=== PATIENT | male | born 1985 | race Caucasian/White ===

== ENCOUNTER 2016-12-16 21:54 | Emergency (ER) | payer MEDICAID ==
[~2016-12-16] VITALS: Ht 188 cm; Wt 89.0 kg
[2016-12-16 21:59] VITALS: Ht 188 cm; Wt 89.0 kg
[2016-12-16] MEDS ORDERED: KETOROLAC 30 MG INJ IV STA (22:06)
[2016-12-16] MEDS ORDERED: ASPIRIN 81 MG TAB PO ONE (22:30)
[2016-12-16] MEDS ORDERED: LIDOCAINE/MYLANTA 40 ML BTL PO ONE (22:30)
--- NOTE | 2016-12-16 23:18 | ERD ---
ER Documentation Chief Complaint Date/Time DATE: 12/16/16 TIME: 23:14 Chief Complaint CP x 30 min, comes from detox center. H/O "mild heart attck" previously HPI This 31-year-old male was being released from his detox facility 30 minutes ago when he complained of sharp chest pain. States that the chest pain is in the center of his chest and was present since earlier in the day. Asked him about this suppose a history of a heart attack he said that a month ago he went to another hospital for chest pain is not sure that he actually had any heart attack. Says he has no history of hypertension, coronary artery disease, heart attacks in his family at a young age, but he has smoked cigarettes for more than 10 years. Denies shortness of breath, denies nausea and vomiting. ROS All systems reviewed and are negative except as per history of present illness. 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 Head: Atraumatic Eyes: Normal Conjunctiva ENT: Normal External Ears, Nose and Mouth. Neck: Full range of motion..~ No meningismus. Resp: Clear to auscultation bilaterally Cardio: Regular rate and rhythm, no murmurs Abd: Soft, non tender, non distended. Normal bowel sounds Skin: No petechiae or rashes Ext: No cyanosis, or edema Neur: Awake and alert And oriented 3, no focal deficits Psych: Normal Mood and Affect Results 24 hrs Laboratory Tests Test 12/16/16 22:06 Troponin I < 0.012ng/ml Current Medications Medications (Trade) Dose Ordered Sig/Abhi Route PRN Reason Start Time Stop Time Status Last Admin Dose Admin Aspirin (Aspirin) 324 mg ONCE ONCE PO 12/16/16 22:30 12/16/16 22:31 DC 12/16/16 22:30 Ketorolac Tromethamine (Toradol) 30 mg ONCE STAT IV 12/16/16 22:06 12/16/16 22:07 DC 12/16/16 22:29 Miscellaneous Medication (Gi Cocktail (2)) 40 ml ONCE ONCE PO 12/16/16 22:30 12/16/16 22:31 DC 12/16/16 22:30 Procedures/MDM Low risk male with chest pain going on for 5 hours. Negative troponin. Completely normal EKG. Normal chest x-ray. He was given 325 mg aspirin as well as a GI cocktail and Toradol. Did have reproducible chest pain. Chest pain was completely resolved in the emergency room. Patient is feeling better going to discharge of instructions to obtain appointment for an echocardiogram through his primary care doctor. Return precautions also given. EKG interpretation: Normal sinus rhythm rate of 86, normal axis, no ST or T- wave changes concerning for acute ischemia, normal intervals. Normal EKG supervisor mails interpretation: Normal sinus rhythm without arrhythmia Chest x-ray interpretation: I see no acute process. I see no widened mediastinum, no pneumothorax, no fractures. Departure Diagnosis: Primary Impression: Chest pain Condition: Stable BARBER STANLEYJON VIZCAINO Dec 16, 2016 23:18
[2016-12-16 23:51] VITALS: BP 128/73; PULSE 77; RESP 20; TEMP 98.3
[2016-12-17] MEDS ORDERED: NAPR-688 PO (00:55)
[2016-12-17] MEDS ORDERED: RANI150T9 PO (00:55)
--- NOTE | 2016-12-17 01:16 | RADRPT ---
PROCEDURE: XR Chest. CLINICAL INDICATION: Chest pain. TECHNIQUE: Single frontal view of the chest. COMPARISON: None. FINDINGS: Heart size is likely upper limits of normal. The lungs are clear. No signs of pleural fluid or pneum othorax are seen. The osseous structures and soft tissues are unremarkable. IMPRESSION: No evidence for active cardiopulmonary disease. RPTAT: [facility] Physician Chika Date Time Electronically viewed and signed by Physician Chika on 12/17/2016 01:16 RS/
[2016-12-18] MEDS ORDERED: LEVE100018 PO (21:45)
== END 2016-12-17 01:22 | disposition home or self-care (01) ==
LOC: FTE 21:54
DX: R07.9 Chest pain, unspecified (principal); I50.9 Heart failure, unspecified; F17.210 Nicotine dependence, cigarettes, uncomplicated
CPT/HCPCS: 71010; 84484; 93005; 96374; J1885; Z7502; Z7610

== ENCOUNTER 2016-12-18 20:21 | Emergency (ER) | payer MEDICAID ==
[~2016-12-18] VITALS: Ht 188 cm; Wt 90.0 kg
[~2016-12-18 20:21] MED LIST: NAPR-688 PO; RANI150T9 PO
[2016-12-18 20:36] VITALS: Ht 188 cm; Wt 90.0 kg
[2016-12-18] MEDS ORDERED: LORAZEPAM 2 MG INJ ONE (21:40)
[2016-12-18] MEDS ORDERED: LEVE100018 PO (21:45)
[2016-12-18] MEDS ORDERED: LORAZEPAM 2 MG INJ IV ONE (22:00)
[2016-12-18] MEDS ORDERED: SOD CHLORIDE 0.9% 500 ML IV STA (22:06)
[2016-12-18 22:35] LABS: BASOPHILS % 0.6 % (0.0-2.0); EOSINOPHILS # 0.4 10^3/ul (0.0-0.5); EOSINOPHILS % 5.5 % (0.0-7.0); HEMATOCRIT 39.8 % (42.0-52.0); HEMOGLOBIN 13.1 g/dl (14.0-18.0); LYMPHOCYTES # 2.3 10^3/ul (0.8-2.9); MEAN CORPUSCULAR HEMOGLOBIN 29.8 pg (29.0-33.0); MEAN CORPUSCULAR HGB CONC 32.9 g/dl (32.0-37.0); MEAN CORPUSCULAR VOLUME 90.7 fl (82.0-101.0); MEAN PLATELET VOLUME 12.3 fl (7.4-10.4); MONOCYTE # 0.8 10^3/ul (0.3-0.9); MONOCYTES % 11.1 % (0.0-11.0); NEUTROPHIL # 3.6 10^3/ul (1.6-7.5); NEUTROPHILS % 50.4 % (39.0-77.0); PLATELET COUNT 203 10^3/UL (140-415); RED BLOOD COUNT 4.39 10^6/ul (4.70-6.10); RED CELL DISTRIBUTION WIDTH 13.2 % (11.5-14.5); WHITE BLOOD COUNT 7.1 10^3/ul (4.8-10.8)
[2016-12-18 22:55] LABS: CALCIUM 8.9 mg/dl (8.4-10.2); CREATININE 0.65 mg/dl (0.61-1.24); POTASSIUM 4.3 mmol/L (3.5-5.1)
--- NOTE | 2016-12-18 23:44 | RADRPT ---
PROCEDURE: CT Head without. CLINICAL INDICATION: Seizure. TECHNIQUE: The study was performed utilizing a multi-slice, multidetector CT scanner. Direct spira l 1 mm axial sections were obtained through the head without the use of intravenous contrast materia l. 1 or more of the following dose reduction techniques were utilized: Automated exposure control, adjustment of the mA and/or kV according to patient's size, iterative reconstruction technique. Co stewart and sagittal reformations were obtained. The images were reviewed on a PACS workstation. RADIATION DOSE: CTDIvol: 43.4 mGyDLP: 914.0 mGy-cm COMPARISON: No prior studies are available for comparison. FINDINGS: There is no intracranial hemorrhage, extra-axial fluid collection, mass lesion, midline shift or hyd rocephalus. The ventricles, sulci and cisterns are within normal limits. The white matter is unrem arkable. The santana-white matter differentiation is preserved. The basal cisterns are patent. The m idline structures are intact. The orbits, calvarium and extracranial soft tissues are normal in tai earance. The visualized paranasal sinuses, mastoid air cells and middle ear cavities are normally ae rated. IMPRESSION: 1. No acute intracranial abnormality. No intracranial hemorrhage, extra-axial fluid collection, ma ss lesion or hydrocephalous. ARPTAT: HGAS .Bib Solis MD, MD Date Time Electronically viewed and signed by .Bib Solis MD, MD on 12/18/2016 23:44 .S/
--- NOTE | 2016-12-18 23:44 | RADRPT ---
PROCEDURE: XR Chest. CLINICAL INDICATION: Seizure. TECHNIQUE: AP view of the chest was obtained. COMPARISON: None available FINDINGS: The cardiomediastinal silhouette is within normal limits. The lungs are clear. No signs of pleural f luid or pneumothorax are seen. The osseous structures and soft tissues are unremarkable. IMPRESSION: 1. No evidence for active cardiopulmonary disease. RPTAT: HGAS .Bib Solis MD, MD Date Time Electronically viewed and signed by .Bib Solis MD, on 12/18/2016 23:44 .S/
--- NOTE | 2016-12-19 00:43 | ERD ---
ER Documentation Chief Complaint Date/Time DATE: 12/19/16 TIME: 00:42 Chief Complaint seizure this evening HPI This is a 31-year-old male says he had a seizure earlier this has had breakthrough seizures before. History of seizure disorder. On Keppra. Compliant with medications. ROS All systems reviewed and are negative except as per history of present illness. 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 Neck: Full range of motion..~ No meningismus. Resp: Clear to auscultation bilaterally Cardio: Regular rate and rhythm, no murmurs Abd: Soft, non tender, non distended. Normal bowel sounds Skin: No petechiae or rashes Back: No midline or flank tenderness Ext: No cyanosis, or edema Neur: Awake and alert Psych: Normal Mood and Affect Result Diagram: 12/18/16213012/18/162130 Results 24 hrs Laboratory Tests Test 12/18/16 21:31 12/18/16 22:30 White Blood Count 7.110^3/ul Red Blood Count 4.3910^6/ul Hemoglobin 13.1g/dl Hematocrit 39.8% Mean Corpuscular Volume 90.7fl Mean Corpuscular Hemoglobin 29.8pg Mean Corpuscular Hemoglobin Concent 32.9g/dl Red Cell Distribution Width 13.2% Platelet Count 27098^3/UL Mean Platelet Volume 12.3fl Neutrophils % 50.4% Lymphocytes % 32.0% Monocytes % 11.1% Eosinophils % 5.5% Basophils % 0.6% Nucleated Red Blood Cells % 0.0/100WBC Neutrophils # 3.610^3/ul Lymphocytes # 2.310^3/ul Monocytes # 0.810^3/ul Eosinophils # 0.410^3/ul Basophils # 0.010^3/ul Nucleated Red Blood Cells # 0.010^3/ul Sodium Level 137mmol/L Potassium Level 4.3mmol/L Chloride Level 109mmol/L Carbon Dioxide Level 24mmol/L Anion Gap 8 Blood Urea Nitrogen 19mg/dl Creatinine 0.65mg/dl Glucose Level 92mg/dl Calcium Level 8.9mg/dl Bedside Glucose 103mg/dL Current Medications Medications (Trade) Dose Ordered Sig/Abhi Route PRN Reason Start Time Stop Time Status Last Admin Dose Admin Lorazepam (Ativan) 2 mg STK-MED ONCE .ROUTE 12/18/16 21:40 12/18/16 21:41 DC Lorazepam 1 mg 1 mg ONCE ONCE IV 12/18/16 22:00 12/18/16 22:01 DC 12/18/16 22:01 Sodium Chloride (NS) 500 ml @ 500 mls/hr Q1H STAT IV 12/18/16 22:06 12/18/16 23:05 DC 12/18/16 22:30 Procedures/MDM EKG: Rate/Rhythm: [Normal Sinus Rhythm] QRS, ST, T-waves: [No changes consistent w/ acute ischemia] Impression: [No evidence of ischemia or arrhythmia] CT of the head is read as negative by the radiologist. Please see his dictation for report. Medical decision-makin-year-old male with recurrent seizure disorder. No further seizure activity here. Well-appearing. Discharged home. Advised to follow-up with neurologist tomorrow. Return for any seizure-like activity. Departure Diagnosis: Primary Impression: Seizure disorder Condition: Stable Patient Instructions: Seizure, Recurrent [Adult] LUISA KING Dec 19, 2016 00:43
[2016-12-19 00:56] VITALS: BP 119/78; PULSE 73; RESP 14; TEMP 98.6
== END 2016-12-19 00:58 | disposition home or self-care (01) ==
LOC: E/R 20:21
DX: G40.909 Epilepsy, unspecified, not intractable, without status epilepticus (principal); R40.2252 Coma scale, best verbal response, oriented, at arrival to emergency department; F17.210 Nicotine dependence, cigarettes, uncomplicated; I50.9 Heart failure, unspecified; R40.2142 Coma scale, eyes open, spontaneous, at arrival to emergency department; R40.2362 Coma scale, best motor response, obeys commands, at arrival to emergency department
CPT/HCPCS: 36415; 70450; 71010; 80048; 82962; 85025; 96374; J2060; J7040; Z7502

== ENCOUNTER 2016-12-24 01:50 | Emergency (ER) | payer MEDICAID ==
[~2016-12-24] VITALS: Ht 189.2 cm; Wt 90.9 kg
[~2016-12-24 01:50] MED LIST changes: +LEVE100018 PO
[2016-12-24 01:53] VITALS: Ht 189.2 cm; Wt 90.9 kg
[2016-12-24] MEDS ORDERED: ACETAMINOPHEN 500 MG TAB PO STA (02:19)
--- NOTE | 2016-12-24 02:25 | ERD ---
ER Documentation Chief Complaint Date/Time DATE: 12/24/16 TIME: 02:21 Chief Complaint PAMELA RA41 from home,c/o chest sharp pain,hx CHF,seizure HPI Patient is a 31-year-old male who presents with sudden onset, constant, sharp left precordial chest pain that began 20 minutes prior to arrival. He states that it hurts when he pushes on his chest or when he takes a deep breath. He denies cough, fever, back pain. He was seen in the ER within the last week for the same complaint, but states that this is a different chest pain. He states that he has history of CHF since he was a baby and had a heart surgery as a baby , but does not know further details. He is in a sober living for prior heroin abuse. ROS All systems reviewed and are negative except as per history of present illness. Medications Home Meds Active Scripts Acetaminophen* (Tylophen*) 500 Mg Capsule, 1000 MG PO Q6H Y for CHEST PAIN, #20 TAB Prov:GENEVIEVE CHAVEZ MD 12/24/16 Ranitidine Hcl* (Zantac*) 150 Mg Tablet, 150 MG PO BID, #30 TAB Prov:MARLENE STANLEY DO 12/17/16 Naproxen* (Naproxen*) 500 Mg Tablet, 500 MG PO BID, #14 TAB Prov:MARLENE STANLEY DO 12/17/16 Reported Medications Levetiracetam* (Keppra*) 1,000 Mg Tablet, 1000 MG PO BID, TAB 12/18/16 Allergies Allergies: Coded Allergies: ibuprofen (Unverified Allergy, Unknown, 12/18/16) PMhx/Soc Past medical history: Congenital heart defect, CHF Past surgical history: Unknown cardiac surgery Social history: Prior heroin and benzodiazepine abuse, smokes cigarettes, denies alcohol Hx Cardiac Disorders: Yes ([place] CHF) Hx Miscellaneous Medical Probl: Yes (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 Neck: Full range of motion..~ No meningismus.No JVD Resp: Clear to auscultation bilaterally, No wheezes, no rales Cardio: Regular rate and rhythm, no murmur. Left parasternal chest tenderness, palpation of left precordium completely reproduces pain Abd: Soft, non tender, non distended. Normal bowel sounds Skin: No petechiae or rashes Back: No midline or flank tenderness Ext: No cyanosis, or edema. 2+ radial pulses without delay Neur: Awake and alert, Cranial nerves II through XII intact bilaterally, strength and sensation full for extremity Psych: Normal Mood and Affect Result Diagram: 12/24/1620912/24/16209 Results 24 hrs Laboratory Tests Test 12/24/16 02:10 12/24/16 03:00 12/24/16 05:12 White Blood Count 8.010^3/ul Red Blood Count 4.3310^6/ul Hemoglobin 12.9g/dl Hematocrit 39.1% Mean Corpuscular Volume 90.3fl Mean Corpuscular Hemoglobin 29.8pg Mean Corpuscular Hemoglobin Concent 33.0g/dl Red Cell Distribution Width 13.3% Platelet Count 07190^3/UL Mean Platelet Volume 11.7fl Neutrophils % 49.7% Lymphocytes % 34.8% Monocytes % 9.4% Eosinophils % 4.9% Basophils % 0.6% Nucleated Red Blood Cells % 0.0/100WBC Neutrophils # 4.010^3/ul Lymphocytes # 2.810^3/ul Monocytes # 0.810^3/ul Eosinophils # 0.410^3/ul Basophils # 0.110^3/ul Nucleated Red Blood Cells # 0.010^3/ul D-Dimer < 220.00ng/ml D-Dimer Comment Sodium Level 140mmol/L Potassium Level 4.2mmol/L Chloride Level 108mmol/L Carbon Dioxide Level 25mmol/L Anion Gap 11 Blood Urea Nitrogen 26mg/dl Creatinine 0.67mg/dl Glucose Level 108mg/dl Calcium Level 8.7mg/dl Troponin I 0.013ng/ml < 0.012ng/ml B-Type Natriuretic Peptide < 11PG/ML Urine Opiates Screen Negative Urine Barbiturates Negative Urine Amphetamines Screen Negative Urine Benzodiazepines Screen Negative Urine Cocaine Screen Negative Urine Cannabinoids Positive Current Medications Medications (Trade) Dose Ordered Sig/Abhi Route PRN Reason Start Time Stop Time Status Last Admin Dose Admin Acetaminophen 1000 mg 1,000 mg ONCE STAT PO 12/24/16 02:19 12/24/16 02:22 DC 12/24/16 03:07 Sodium Chloride (NS) 1,000 ml @ 1,000 mls/hr Q1H ONCE IV 12/24/16 03:30 12/24/16 04:29 DC 12/24/16 03:49 Procedures/MDM EKG read by me: Time 0159, rate 71 Rhythm: Normal sinus [place]: Normal Intervals: Normal ST-T waves: no ischemic changes Ectopy: No Q-waves: No Impression: No evidence of ischemia or arrhythmia MDM: Patient is a 31-year-old male who presents to the ER with complaint of chest pain. States that the pain has been constant since 20 minutes prior to ER arrival. He has a nonischemic EKG in the setting of active chest pain. 2 troponins were performed and are both negative. His heart score is 0. Patient is in a sober living facility but has a tox screen is positive for marijuana. He states that he is allergic to NSAIDs and that Tylenol was not adequate to treat his pain. I have some concern for his chest pain was reproducible on chest wall palpation. He had an unremarkable chest x-ray. There are no features concerning for PE and he was PERC negative. There are no features concerning for aortic dissection. Given the patient's history of substance abuse and unclear diagnosis, I do not believe that narcotic medications are appropriate in this setting. I will give him a prescription for Tylenol and advised to follow-up with his PMD. He was advised to return precautions. Departure Diagnosis: Primary Impression: Chest pain Chest pain type: unspecified Qualified Code: R07.9 - Chest pain, unspecified type Condition: GENEVIEVE Hernandez MD Dec 24, 2016 02:25
[2016-12-24 02:40] LABS: BASOPHIL # 0.1 10^3/ul (0.0-0.1); BASOPHILS % 0.6 % (0.0-2.0); EOSINOPHILS # 0.4 10^3/ul (0.0-0.5); EOSINOPHILS % 4.9 % (0.0-7.0); HEMATOCRIT 39.1 % (42.0-52.0); HEMOGLOBIN 12.9 g/dl (14.0-18.0); LYMPHOCYTES # 2.8 10^3/ul (0.8-2.9); LYMPHOCYTES % 34.8 % (15.0-51.0); MEAN CORPUSCULAR HEMOGLOBIN 29.8 pg (29.0-33.0); MEAN CORPUSCULAR VOLUME 90.3 fl (82.0-101.0); MEAN PLATELET VOLUME 11.7 fl (7.4-10.4); MONOCYTE # 0.8 10^3/ul (0.3-0.9); MONOCYTES % 9.4 % (0.0-11.0); NEUTROPHILS % 49.7 % (39.0-77.0); PLATELET COUNT 217 10^3/UL (140-415); RED BLOOD COUNT 4.33 10^6/ul (4.70-6.10); RED CELL DISTRIBUTION WIDTH 13.3 % (11.5-14.5)
--- NOTE | 2016-12-24 02:40 | RADRPT ---
PROCEDURE: XR Chest. CLINICAL INDICATION: Chest pain. TECHNIQUE: Single frontal chest x-ray. COMPARISON: 187 FINDINGS: The cardiomediastinal silhouette is unremarkable. There is no congestive heart failure.. No focal i nfiltrate is seen. There is no pleural effusion. There is no pneumothorax. The osseous structures are unremarkable. IMPRESSION: 1. No active disease. RPTAT: HMVK .Michoacano Vargas MD, MD Date Time Electronically viewed and signed by .Michoacano Vargas MD, on 12/24/2016 02:40 .K/
[2016-12-24 03:03] LABS: ANION GAP 11 (8-16); BLOOD UREA NITROGEN 26 mg/dl (7-20); CALCIUM 8.7 mg/dl (8.4-10.2); CARBON DIOXIDE 25 mmol/L (21-31); CHLORIDE 108 mmol/L (97-110); CREATININE 0.67 mg/dl (0.61-1.24); GLUCOSE 108 mg/dl (70-220); POTASSIUM 4.2 mmol/L (3.5-5.1); SODIUM 140 mmol/L (135-144)
[2016-12-24 03:14] LABS: B-TYPE NATRIURETIC PEPTIDE < 11 PG/ML (0-125); TROPONIN-I 0.013 ng/ml (0.00-0.12)
[2016-12-24 03:30] LABS: D-DIMER < 220.00 ng/ml (<460)
[2016-12-24] MEDS ORDERED: SOD CHLORIDE 0.9% 1,000 ML IV ONE (03:30)
[2016-12-24 03:51] LABS: CANNABINOIDS Positive (NEGATIVE)
[2016-12-24 03:56] LABS: BARBITURATES Negative (NEGATIVE); BENZODIAZEPINES Negative (NEGATIVE); COCAINE Negative (NEGATIVE); OPIATES Negative (NEGATIVE)
[2016-12-24 05:39] VITALS: BP 140/94; PULSE 66; TEMP 98.4
[2016-12-24] MEDS ORDERED: ACET500C5 PO (06:07)
== END 2016-12-24 07:37 | disposition home or self-care (01) ==
LOC: E/R 01:50
DX: R07.9 Chest pain, unspecified (principal); I50.9 Heart failure, unspecified; F17.210 Nicotine dependence, cigarettes, uncomplicated
CPT/HCPCS: 36415; 71010; 80048; 80307; 83880; 84484; 85025; 85378; 93005; J7030; Z7502; Z7610

== ENCOUNTER 2016-12-26 23:38 | Emergency (ER) | payer MEDICAID ==
[~2016-12-26] VITALS: Ht 189.2 cm; Wt 100.0 kg
[~2016-12-26 23:38] MED LIST changes: +ACET500C5 PO
[2016-12-26 23:49] VITALS: Ht 189.2 cm; Wt 100.0 kg
[2016-12-27 00:48] LABS: BASOPHIL # 0.1 10^3/ul (0.0-0.1); BASOPHILS % 0.7 % (0.0-2.0); EOSINOPHILS # 0.5 10^3/ul (0.0-0.5); EOSINOPHILS % 5.5 % (0.0-7.0); HEMOGLOBIN 12.6 g/dl (14.0-18.0); LYMPHOCYTES # 2.4 10^3/ul (0.8-2.9); LYMPHOCYTES % 28.7 % (15.0-51.0); MEAN CORPUSCULAR HEMOGLOBIN 30.2 pg (29.0-33.0); MEAN CORPUSCULAR HGB CONC 33.2 g/dl (32.0-37.0); MEAN CORPUSCULAR VOLUME 91.1 fl (82.0-101.0); MEAN PLATELET VOLUME 11.3 fl (7.4-10.4); MONOCYTE # 0.8 10^3/ul (0.3-0.9); MONOCYTES % 9.1 % (0.0-11.0); NEUTROPHIL # 4.6 10^3/ul (1.6-7.5); NEUTROPHILS % 55.5 % (39.0-77.0); PLATELET COUNT 219 10^3/UL (140-415); RED BLOOD COUNT 4.17 10^6/ul (4.70-6.10); RED CELL DISTRIBUTION WIDTH 13.5 % (11.5-14.5); WHITE BLOOD COUNT 8.4 10^3/ul (4.8-10.8)
[2016-12-27 01:04] LABS: ALANINE AMINOTRANSFERASE 29 IU/L (13-69); ALBUMIN 3.8 g/dl (3.3-4.9); ALBUMIN/GLOBULIN RATIO 1.15; ALKALINE PHOSPHATASE 49 IU/L (42-121); ANION GAP 11 (8-16); ASPARTATE AMINO TRANSFERASE 18 IU/L (15-46); BLOOD UREA NITROGEN 21 mg/dl (7-20); CARBON DIOXIDE 26 mmol/L (21-31); CHLORIDE 108 mmol/L (97-110); CREATININE 0.67 mg/dl (0.61-1.24); GLUCOSE 100 mg/dl (70-220); SODIUM 141 mmol/L (135-144); TOTAL PROTEIN 7.1 g/dl (6.1-8.1)
--- NOTE | 2016-12-27 01:46 | RADRPT ---
PROCEDURE: Noncontrast CT Head. CLINICAL INDICATION: Seizure TECHNIQUE: Noncontrast CT of the head was obtained. The administered radiation dose was CTDI vol = 45 mGy, DLP = 1440 mGy-cm. One or more of the following dose reduction techniques were used: automat ed exposure control, adjustment of the mA and/or kV according to patient size and/or use of iterativ e reconstruction technique. COMPARISON: No pertinent prior examinations were submitted for comparison. FINDINGS: The ventricles and sulci are within normal limits. There is no acute intracranial hemorrhage or ext ra-axial fluid collection. There is no mass effect. No midline shift is identified. There is no loss of santana-white differentiation to suggest acute infarction. The orbits are within normal limits. The paranasal sinuses and mastoid air cells are without fluid. No destructive osseous lesion is identified. IMPRESSION: No acute findings. RPTAT: HIKT .Max Ontiveros MD, MD Date Time Electronically viewed and signed by .Max Ontiveros MD, MD on 12/27/2016 01:46 .T/
[2016-12-27 01:56] LABS: ACETAMINOPHEN < 10.0 ug/ml (10.0-30.0); SALICYLATE < 1.0 mg/dl (5.0-30.0)
--- NOTE | 2016-12-27 02:37 | ERD ---
ER Documentation Chief Complaint Date/Time DATE: 12/27/16 TIME: 02:36 Chief Complaint RA 89,lethargic,possible sz,hx sz HPI This is a 31-year-old male brought in by rescue for being lethargic. Patient has history of seizures, however he smells of alcohol in the ambulance bay. He denies drinking. Denies any other current issues. No evidence of trauma. History is limited secondary to patient's current mental status ROS All systems reviewed and are negative except as per history of present illness. Allergies Allergies: Coded Allergies: ibuprofen (Verified Allergy, Unknown, 12/26/16) Physical Exam Vitals Vital Signs Date Time Temp Pulse Resp B/P Pulse Ox O2 Delivery O2 Flow Rate FiO2 12/27/16 01:09 Nasal Cannula 2 12/26/16 23:49 97.5 80 18 117/65 99 Physical Exam Const: [] Head: Atraumatic Eyes: Normal Conjunctiva ENT: Normal External Ears, Nose and Mouth. Neck: Full range of motion..~ No meningismus. Resp: Clear to auscultation bilaterally Cardio: Regular rate and rhythm, no murmurs Abd: Soft, non tender, non distended. Normal bowel sounds Skin: No petechiae or rashes Back: No midline or flank tenderness Ext: No cyanosis, or edema Neur: Awake and alert Psych: Normal Mood and Affect Result Diagram: 12/27/16 0030 12/27/16 0030 Results 24 hrs Laboratory Tests Test 12/27/16 00:30 White Blood Count 8.410^3/ul Red Blood Count 4.1710^6/ul Hemoglobin 12.6g/dl Hematocrit 38.0% Mean Corpuscular Volume 91.1fl Mean Corpuscular Hemoglobin 30.2pg Mean Corpuscular Hemoglobin Concent 33.2g/dl Red Cell Distribution Width 13.5% Platelet Count 13976^3/UL Mean Platelet Volume 11.3fl Neutrophils % 55.5% Lymphocytes % 28.7% Monocytes % 9.1% Eosinophils % 5.5% Basophils % 0.7% Nucleated Red Blood Cells % 0.0/100WBC Neutrophils # 4.610^3/ul Lymphocytes # 2.410^3/ul Monocytes # 0.810^3/ul Eosinophils # 0.510^3/ul Basophils # 0.110^3/ul Nucleated Red Blood Cells # 0.010^3/ul Sodium Level 141mmol/L Potassium Level 4.0mmol/L Chloride Level 108mmol/L Carbon Dioxide Level 26mmol/L Anion Gap 11 Blood Urea Nitrogen 21mg/dl Creatinine 0.67mg/dl Glucose Level 100mg/dl Calcium Level 9.0mg/dl Total Bilirubin 0.0mg/dl Direct Bilirubin 0.00mg/dl Indirect Bilirubin 0.0mg/dl Aspartate Amino Transf (AST/SGOT) 18IU/L Alanine Aminotransferase (ALT/SGPT) 29IU/L Alkaline Phosphatase 49IU/L Total Protein 7.1g/dl Albumin 3.8g/dl Globulin 3.30g/dl Albumin/Globulin Ratio 1.15 Salicylates Level < 1.0mg/dl Acetaminophen Level < 10.0ug/ml Ethyl Alcohol Level 166.0mg/dl Procedures/MDM Medical decision-makin-year-old male with obvious alcohol intoxication. Head CT is negative. Nonfocal neurologically. Patient will be discharged home. Departure Diagnosis: Primary Impression: Altered level of consciousness Condition: Stable LUISA KING Dec 27, 2016 02:37
[2016-12-27 08:10] VITALS: BP 120/75; PULSE 84; RESP 20; TEMP 97
== END 2016-12-27 08:12 | disposition home or self-care (01) ==
LOC: E/R 23:38 → EDBD 23:38 → MERGE 23:38 → E/R 12-27 08:12
DX: R40.4 Transient alteration of awareness (principal)
CPT/HCPCS: 36415; 70450; 80053; 80306; 85025; Z7502